=== PATIENT | male | born 1950 | race Caucasian/White ===

== ENCOUNTER → 2018-08-24 | Outpatient (CLI) | payer MEDICARE ==
--- NOTE | 2018-08-24 09:17 | REP ---
Chest x-ray: Two views. History: Left knee arthritis. Findings: The lungs are symmetrically aerated and clear. The pleural angles are sharp. Heart size is normal. The thoracic aorta slightly tortuous. There are degenerative changes in the thoracic spine. Pulmonary vasculature is not increased. Impression: No acute disease. Electronically Signed by Praveen Pisano MD 08/24/2018 09:08 A
[2018-08-24 09:18] LABS: HEMATOCRIT 45.6 % (42.0-52.0); HEMOGLOBIN 15.5 g/dl (13.5-17.5); MEAN CORPUSCULAR HEMOGLOBIN 31.1 pg (27.0-33.0); MEAN CORPUSCULAR VOLUME 91.6 fl (80.0-96.0); PLATELET COUNT, AUTOMATED 237 10^3/uL (150-450); RED BLOOD COUNT 4.98 10^6/uL (4.30-6.10)
[2018-08-24 09:35] LABS: ERYTHROCYTE SEDIMENTATION RATE 1 mm/hr (0-20)
[2018-08-24 09:38] LABS: INR 1.12; PROTHROMBIN TIME 14.1 SECONDS (11.8-14.0)
[2018-08-24 09:41] LABS: ALBUMIN 4.2 GM/DL (3.2-5.2); ALT/SGPT 34 U/L (12-78); BILIRUBIN,TOTAL 0.4 MG/DL (0.2-1.0); BLOOD UREA NITROGEN 17 MG/DL (7-18); CALCIUM LEVEL 8.9 MG/DL (8.8-10.2); CARBON DIOXIDE LEVEL 26 MEQ/L (21-32); CHLORIDE LEVEL 108 MEQ/L (98-107); CREATININE FOR GFR 1.08 MG/DL (0.70-1.30); GLOMERULAR FILTRATION RATE > 60.0 (>49); GLUCOSE, FASTING 164 MG/DL (70-100); POTASSIUM SERUM 4.3 MEQ/L (3.5-5.1); SODIUM LEVEL 140 MEQ/L (136-145); TOTAL PROTEIN 7.5 GM/DL (6.4-8.2)
--- NOTE | 2018-08-24 20:19 | ECGEPIP ---
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
== END ==
LOC: M LAB 08:21
PROVIDERS: ATTEND Orthopaedic Surgery
DX: Z01.810 Encounter for preprocedural cardiovascular examination (principal); M17.12 Unilateral primary osteoarthritis, left knee

== ENCOUNTER 2018-09-29 06:49 | Inpatient (IN) | payer MEDICARE ==
--- NOTE | 2018-09-22 15:14 | HPE ---
DATE OF ADMISSION: 09/29/2018. HISTORY OF PRESENT ILLNESS: Mr. Holm is a pleasant 67-year-old male with continuing symptomatic left knee osteoarthritis. He has consented for left total knee arthroplasty per Dr. Natalio Rojas. Medical optimization was per Dr. Stiles on 08/31/2018, which we are still awaiting documentation. ALLERGIES: None known to drugs. MEDICATION LIST INCLUDES: - lisinopril 40 mg. - gabapentin 600 mg. - Metformin HCL 500 mg. - Ventolin HFA 108 (90 base) mcg 05/17 ACT - tamsulosin HCL 0.4 mg. - aspirin - 81 mg. - Coumadin 500 mg. - Clomiphene citrate 50 mg. MEDICAL PROBLEM LIST: Left knee osteoarthritis. Hypertension. Type 2 diabetes. Asthma. PAST SURGICAL HISTORY: Times two about the left knee including open and then subsequent arthroscopic intervention. SOCIAL HISTORY: Denies smoking. Admits to occasional ethanol intake. FAMILY HISTORY: Positive for arthritis, diabetes, hypertension, hypercholesteremia, heart disease and cancer. REVIEW OF SYSTEMS: Denies chest pain, shortness breath, dyspnea on exertion, fevers, chills, malaise, upper respiratory or urinary tract symptoms. LABORATORY DATA: Chest x-ray Service date 08/24/2018 per [facility], no acute disease as read by Dr. Pisano. EKG: Sinus rhythm, normal per Dr. Ralph Brannon service date 08/24/2018. Labs showed PTT 14.1, glucose fasting 164, chloride level 108, anion gap 6, alkaline phosphatase 31, otherwise all within normal limits. Awaiting Dr. Stiles medical optimization note. PHYSICAL EXAMINATION: BP 165/80, pulse 61, temperature 97.8, height 68.5, weight 190 pounds 6 ounces, BMI 28.5, respirations 13. This is a pleasant well-developed, well-nourished male in no acute distress. Alert and x3. Mood and affect are appropriate. He is ambulating with favoring about the right lower extremity. Left knee varus osteoarthritic alignment with noted old scars consistent with his open meniscectomy and arthroscopic intervention. Positive medial joint line tenderness to palpation crepitance about the knee through flexion/extension. Proximal interphalangeal joint (PIJ) is congruent in static and dynamic. Negative popliteal fossa mass or pain. Bowels soft times four. Chest: Regular rate and rhythm. Lungs: Clear. Chest rises symmetrically. Neck: Supple. Head: Normocephalic. IMPRESSION: 1. Left knee symptomatic end-stage degenerative joint disease (DJD). 2. Patient consented for left total knee arthroplasty per Dr. Natalio Rojas. 3. Medical optimization with Dr. Stiles on 08/31/2018, which we are awaiting documentation clearance, although the patient states he was cleared. 4. On-call operating room (OR) 2 grams IV Kefzol in OR. 5. Sequential compression devices (SCD) and thromboembolic deterrent stockings (TEDS) in OR. MTDD
[~2018-09-29] VITALS: Ht 177.8 cm; Wt 85.9 kg
[2018-09-29] VITALS (8 sets, daily range): BP systolic 135–172; BP diastolic 76–106; O2SAT 95
[~2018-09-29 06:49] MED LIST: ASPI81TA85 PO; CLOM50TA9 PO; FLAX1CAP5 PO; FLOM0.4C39 PO; GRAP60TA PO; LISI40TA PO; METF500T13 PO; NEUR600T PO; PROBCAP14 PO; RA T500C2 PO; VENTAER INH; VITA500054 PO
[2018-09-29] MEDS ORDERED: LR 1,000 ML IV ONE (07:00)
[2018-09-29] MEDS ORDERED: fentaNYL 100 MCG/2 ML INJECTION (J3010) As Ordered ONE ×2 (08:24→09:19)
[2018-09-29] MEDS ORDERED: MIDAZOLAM INJ 2 MG/2 ML VIAL (J2250) As Ordered ONE ×2 (08:24→09:18)
--- NOTE | 2018-09-29 09:11 | IPN ---
DATE: 09/29/2018 Patient seen and examined. He wished to go ahead with a left total knee arthroplasty. He understands the nature of the procedure, the risks of bleeding, infection, damage to nerves, vessels, persistent pain, wear loosening, blood clots, medical problems, , among others. Preop clearance was obtained. We anticipate doing a left total knee arthroplasty.
[2018-09-29] MEDS ORDERED: LIDOCAINE 2% INJ 100 MG/5 ML SDV (FOR ANES.) As Ordered ONE (09:18)
[2018-09-29] MEDS ORDERED: PROPOFOL 200 MG/20 ML VIAL As Ordered ONE ×2 (09:18→10:55)
[2018-09-29] MEDS ORDERED: TRANEXAMIC ACID 100 MG/ML 10ML VIAL As Ordered ONE (09:22)
[2018-09-29] MEDS ORDERED: ceFAZolin 1GM INJ (J0690 PER 500MG) As Ordered ONE (09:22)
[2018-09-29] MEDS ORDERED: EPINEPHrine INJ 1 MG/ML 1ML AMP As Ordered ONE (09:23)
[2018-09-29] MEDS ORDERED: BUPIVACAINE LIPOSOME/PF 1.3% 20ML VIAL (13.3MG/ML)(EXPAREL)(C9290 PER1MG) As Ordered ONE (09:23)
[2018-09-29] MEDS ORDERED: fentaNYL 100 MCG/2 ML INJECTION (J3010) IV ONE (09:45)
[2018-09-29] MEDS ORDERED: MIDAZOLAM INJ 2 MG/2 ML VIAL (J2250) IV ONE (09:45)
[2018-09-29] MEDS ORDERED: KETOROLAC 60 MG/2 ML VIAL (J1885) As Ordered ONE (10:47)
[2018-09-29] MEDS ORDERED: ONDANSETRON 4MG/2ML VIAL (J2405) As Ordered ONE (10:48)
[2018-09-29] MEDS ORDERED: dexameTHASONE 10 MG/1 ML VIAL PRES.FREE (J1100) ONE (10:58)
[2018-09-29] MEDS ORDERED: ROPIvacaine 0.5% 30 ML INJECTION (J2795 PER 1MG) ONE (10:58)
[2018-09-29] MEDS ORDERED: GLUCAGON FOR INJ 1 MG VIAL (J1610) SC PRN (12:15)
[2018-09-29] MEDS ORDERED: MORPHINE 4 MG/ML 1ML VIAL/SYRINGE (J2270) IV PRN ×2 (12:15)
[2018-09-29] MEDS ORDERED: oxyCODONE 5MG TAB PO PRN (12:15)
[2018-09-29] MEDS ORDERED: GLUCOSE 4 GM CHEW TABLET PO PRN (12:15)
[2018-09-29] MEDS ORDERED: ACETAMINOPHEN TAB 650MG DOSE (2X325MG) PO PRN ×2 (12:15→14:30)
[2018-09-29] MEDS ORDERED: ALBUTEROL 90 MCG/ACT 8GM HFA INHALER INH PRN (12:15)
[2018-09-29] MEDS: LR 1,000 ML IV SCH (12:15)
[2018-09-29] MEDS ORDERED: FLEET ENEMA PR PRN ×2 (12:15→14:30)
[2018-09-29] MEDS ORDERED: fentaNYL 100 MCG/2 ML INJECTION (J3010) IV PRN (12:15)
[2018-09-29] MEDS ORDERED: ONDANSETRON 4MG/2ML VIAL (J2405) IV PRN ×2 (12:15)
[2018-09-29] MEDS ORDERED: LR 1,000 ML IV SCH (12:15)
[2018-09-29] MEDS ORDERED: DEXTROSE 50% 50 ML SYRINGE IV PRN (12:15)
--- NOTE | 2018-09-29 12:21 | CR ---
DATE OF CONSULTATION: 09/29/2018 Dr. Olivia dictating consultation for Dr. Natalio Rojas for the hospitalist group. Hospitalist attending will be Dr. Jamarcus Flores. Branden Holm underwent left total knee replacement. His primary care provider is Dr. Micheal Stiles MD, in [facility]. The patient has a history of hypertension, type 2 diabetes, chronic back pain, allergic rhinitis, gastroesophageal reflux disease (GERD). He had episode of vertigo for which he was admitted to the [facility] 2 years ago. HOME MEDICATIONS: - lisinopril 40 mg daily - aspirin 81 mg daily - metformin 1000 mg twice a day - Flonase nasal inhaler - gabapentin 600 mg daily - albuterol inhaler as needed REVIEW OF SYSTEMS: No current chest pain, shortness of breath, palpitations. VITAL SIGNS: Per postanesthesia care unit (PACU) flow sheet. PHYSICAL EXAM: He is resting comfortably, in no distress. HEENT: Unremarkable. Lungs: Clear bilaterally. Heart: Regular without murmur. Abdomen: Soft, nontender. No masses. Neurologic exam: Nonfocal. IMPRESSION: 1. Hypertension. Would hold his lisinopril until we see what his post-op blood pressure is; restart this as needed. Goal blood pressure less than 140/90. 2. Type 2 diabetes. Hold his metformin until his oral intake is assured and renal function is checked off pending labs. Sliding scale insulin. Fingerstick blood sugar is pending. 3. Chronic back pain. Continue gabapentin 600 mg daily. 4. History of chronic obstructive pulmonary disease (COPD). Albuterol on an as needed basis ordered. Hospitalist will follow the patient's medical issues postoperatively.
[2018-09-29] MEDS ORDERED: ePHEDrine SULFATE 25 MG/5 ML(5MG/ML) SYRINGE As Ordered ONE (12:38)
--- NOTE | 2018-09-29 13:09 | REP ---
REASON: Postoperative TKR. A total knee prosthetic device has been placed the femoral and tibial components of which are well seated and well approximated. The alignment is near anatomical. There is expected postoperative soft tissue swelling. There is an anterior midline skin staple line in place. Electronically Signed by Dev Neal DO 09/29/2018 02:02 P
[2018-09-29] MEDS: GABAPENTIN 100 MG CAP PO SCH ×2 (16:33→21:28)
[2018-09-29] MEDS: PERCOCET 5MG/325MG TAB PO PRN ×2 (16:33→21:29)
[2018-09-29] MEDS: HumaLOG INSULIN (NovoLOG) PER UNIT SC SCH (18:20)
[2018-09-29] MEDS ORDERED: TAMSULOSIN 0.4 MG CAP PO SCH (21:00)
[2018-09-29] MEDS ORDERED: HumaLOG INSULIN (NovoLOG) PER UNIT SC SCH (21:00)
[2018-09-30] MEDS: LR 1,000 ML IV SCH (01:30)
[2018-09-30 02:00] VITALS: BP 129/74
[2018-09-30] MEDS: PERCOCET 5MG/325MG TAB PO PRN ×2 (03:12→09:00)
[2018-09-30 06:00] VITALS: BP 129/74
[2018-09-30 06:59] LABS: HEMATOCRIT 36.5 % (42.0-52.0); HEMOGLOBIN 12.8 g/dl (13.5-17.5); MEAN CORPUSCULAR HEMOGLOBIN 31.4 pg (27.0-33.0); MEAN CORPUSCULAR HGB CONC 35.1 g/dl (32.0-36.5); MEAN CORPUSCULAR VOLUME 89.7 fl (80.0-96.0); PLATELET COUNT, AUTOMATED 221 10^3/uL (150-450); RED BLOOD COUNT 4.07 10^6/uL (4.30-6.10); WHITE BLOOD COUNT 12.2 10^3/uL (4.0-10.0)
[2018-09-30] MEDS ORDERED: XARE10TA PO (06:59)
[2018-09-30] MEDS ORDERED: PERC5TAB12 PO (06:59)
[2018-09-30 07:21] LABS: BLOOD UREA NITROGEN 18 MG/DL (7-18); CALCIUM LEVEL 8.6 MG/DL (8.8-10.2); CARBON DIOXIDE LEVEL 25 MEQ/L (21-32); CHLORIDE LEVEL 106 MEQ/L (98-107); GLOMERULAR FILTRATION RATE > 60.0 (>49); GLUCOSE, FASTING 175 MG/DL (70-100); POTASSIUM SERUM 4.1 MEQ/L (3.5-5.1); SODIUM LEVEL 137 MEQ/L (136-145)
[2018-09-30] MEDS: HumaLOG INSULIN (NovoLOG) PER UNIT SC SCH (08:59)
[2018-09-30] MEDS: GABAPENTIN 100 MG CAP PO SCH (08:59)
[2018-09-30] MEDS ORDERED: SENOKOT S TAB PO SCH (09:00)
[2018-09-30] MEDS ORDERED: MOM 30ML SUSPENSION UDC PO SCH (09:00)
[2018-09-30] MEDS ORDERED: MIRALAX *UNIT DOSE* 17GM PACKET PO SCH (09:00)
[2018-09-30 10:00] VITALS: BP 124/79
[2018-09-30] MEDS ORDERED: RIVAROXABAN 10 MG TAB (XARELTO) PO SCH (18:00)
--- NOTE | 2018-09-30 20:20 | RO ---
DATE OF PROCEDURE: 09/29/2018 PREOPERATIVE DIAGNOSIS: Left knee osteoarthritis, advanced POSTOPERATIVE DIAGNOSIS: Left knee osteoarthritis, advanced. PROCEDURE: Left total knee arthroplasty using an Attune rotating platform, posterior stabilized, size 6 femur and tibia, 8 polyethylene, 35 patellar button. SURGEON: Dr. Natalio Rojas POULTRY CLEANER: Torito Rivera . ANESTHESIA: Spinal. ESTIMATED BLOOD LOSS: Less than 50 mL. COMPLICATIONS: None. INDICATIONS: A 67-year-old gentleman who has had gradually worsening left knee pain and wished to go ahead with a knee replacement. He had severe arthritis and some subluxation. He understood the nature and risks associated with this. DESCRIPTION OF PROCEDURE: The patient was taken to the operating room and placed in the supine position after spinal anesthesia was induced. Left lower extremity was prepped and draped in the usual sterile fashion. Time-out was performed, and a longitudinal incision was made over the anterior aspect of the knee medial. Medial parapatellar arthrotomy was performed. I flexed the knee up, used the canal initiating reamer followed by the intramedullary guide set at 9 mm cut and 5 degrees of valgus, which matched the femur very nicely. He had severe arthritis and severe sclerosis, a lot of dishing of the tibial plateau medially. The guide was pinned in place, and the distal femoral cut was made, protecting soft tissues. I sized the femur to be a 6 and the cutting block was secured in the appropriate amount of external rotation. The remaining cuts were made. With some difficulty, I was able to get the posterior retractor behind the tibial plateau, but it was quite tight. I then prepared the tibia, tibial alignment guide was used, the appropriate amount of valgus and posterior slope was dialed in, and the proximal tibia cut was made taking 10 off the high side, which was just a little bit off the medial side. Excellent cut was noted, osteophytes were removed. Then used the requirements engineer to remove osteophytes and meniscus from either side of the knee. He had significant large posterior osteophytes. The posterior cruciate ligament (PCL) had been removed. It actually was no longer attached distally. And I had anticipated doing a posterior stabilized knee. The spacer blocks were used, a size 8 seemed to have excellent stability and alignment in both flexion and extension. I then prepared the box cut in the usual fashion with the box cutting guide, and the cuts were made. The tibial tray was prepared. Size [address], drilled, broached. I had done a medial release prior to this. I then placed the trial components, and the size 8 fit very nicely in flexion/extension and had excellent alignment and stability. I freehand cut the patella removing about 7 mm of bone, sized to be a 35. The drill holes were placed and the patella button was placed. I did have to do a small lateral release in order to get the patella to track well, which it did. The drill holes had been placed in the end of the femur. The product safety technical assistant prepared the bone cement in the modern technique, and we cemented in the tibial surface and the femoral component, placed the polyethylene, brought the knee out in some extension. Cemented on the patella, removed all excess bone cement and we were very pleased with the alignment. I irrigated. I had irrigated very copiously prior to placement of the prosthesis and dried them carefully. Exparel was placed in the deep tissues. TXA was also placed in the deep tissues. We irrigated again, repaired the deep layer with #1 Vicryl suture and a running Stratafix. The subcu was irrigated and the subcu was closed with #2-0 Vicryl, the skin with gato. The tourniquet had been deflated once the cement had hardened. Sterile dressing was applied, and he was taken to recovery room in stable condition. There were no known complications. The plan will be routine postop. The product safety technical assistant was instrumental in holding retractors and making the distal femoral bone cut under my direct supervision and assisting in wound closure and positioning.
== END 2018-09-30 12:34 | disposition home or self-care (01) | DRG 470 ==
LOC: M OR 06:49 → M MS5PR 13:20
PROVIDERS: ADMIT Orthopaedic Surgery; ATTEND Orthopaedic Surgery
PROC: 0SRD0J9 Replacement of Left Knee Joint with Synthetic Substitute, Cemented, Open Approach (ICD-10-PCS; principal; 2018-09-29 09:45)
DX: M17.12 Unilateral primary osteoarthritis, left knee (principal); I10 Essential (primary) hypertension; E11.9 Type 2 diabetes mellitus without complications; J45.909 Unspecified asthma, uncomplicated; M54.9 Dorsalgia, unspecified; K21.9 Gastro-esophageal reflux disease without esophagitis; Z79.84 Long term (current) use of oral hypoglycemic drugs; Z79.899 Other long term (current) drug therapy